=== PATIENT | female | born 1970 | race Caucasian/White ===

== ENCOUNTER 2019-04-30 14:56 | Emergency (ER) | payer OTHER ==
[2019-04-30] MEDS ORDERED: GLUCAGON 1 MG/VIAL ONE ×2 (15:29→16:07)
[2019-04-30] MEDS ORDERED: ONDANSETRON 4 MG/2 ML VIAL ONE (15:29)
--- NOTE | 2019-04-30 15:44 | RAD REPORT ---
EXAM DESCRIPTION: RAD - Chest Single View - 04/30/2019 3:36 pm CLINICAL HISTORY: CHEST PAIN Chest pain. COMPARISON: No comparisons FINDINGS: Portable technique limits examination quality. The lungs are grossly clear. The heart is normal in size. No displaced fractures. IMPRESSION: No acute intrathoracic process suspected.
[2019-04-30 15:49] LABS: Absolute Lymphocytes (CBC) 0.6 K/uL (0.7-4.9); Basophils % 0.3 % (0-1.3); Hematocrit 47.9 % (36.0-45.0); Lymphocytes % 5.1 % (15.3-44.8); MPV 9.2 fL (7.6-11.3); RBC Red Blood Cell Count 4.67 M/uL (3.86-4.86)
[2019-04-30 15:54] LABS: Protime INR 1.06
[2019-04-30] MEDS ORDERED: PANTOPRAZOLE 40 MG INJ ONE (15:59)
[2019-04-30] MEDS ORDERED: NA CHLORIDE 0.9% 500 ML ONE (16:07)
[2019-04-30 16:22] LABS: ALT/SGPT 16 U/L (12-78); AST/SGOT 15 U/L (15-37); Albumin 4.2 g/dL (3.4-5.0); Alkaline Phosphatase 89 U/L (45-117); BUN Blood Urea Nitrogen 24 mg/dL (7-18); Bicarbonate 23 mmol/L (21-32); Bilirubin Direct 0.2 mg/dL (0-0.2); Bilirubin Total 0.9 mg/dL (0.2-1.0); Glucose Level 115 mg/dL (74-106); Lipase 85 U/L (73-393); Magnesium 2.4 mg/dL (1.8-2.4); NT PRO-BNP 1165 pg/mL (<125); Potassium 3.9 mmol/L (3.5-5.1); Protein, Total 8.6 g/dL (6.4-8.2); Sodium Level 141 mmol/L (136-145); Troponin (Emerg Dept Use Only) < 0.02 ng/mL (0.0-0.045)
--- NOTE | 2019-04-30 16:57 | ER ---
Nurse's Notes [facility] Name: Tiara Contreras Age: 49 yrs Sex: Female : 1970 Arrival Date: 04/30/2019 Time: 14:59 Bed 7 Private MD: Diagnosis: Vomiting, unspecified;Swallowed Foreign Body Sensation Presentation: 04/29 15:10 Chief complaint: Patient states: Ate a piece of steak Monday that got stuck in throat. ss Pt reports that some of the steak came up, but she feels as if there is more that is stuck because she cannot keep anything down. She will feel pressure then vomit right after. Coronavirus screen: The patient has NOT traveled to a country currently being monitored by the [facility] within the last 14 days. Proceed with normal triage procedures. Ebola Screen: Patient denies exposure to infectious person. Patient denies travel to an Ebola-affected area in the 21 days before illness onset. Initial Sepsis Screen: Does the patient meet any 2 criteria? No. Patient's initial sepsis screen is negative. Does the patient have a suspected source of infection? No. Patient's initial sepsis screen is negative. Risk Assessment: Do you want to hurt yourself or someone else? Patient reports no desire to harm self or others. 15:10 Method Of Arrival: Ambulatory ss 15:10 Acuity: GM 3 ss 16:11 Onset of symptoms was April 28, 2019. sv Historical: - Allergies: 15:14 No Known Allergies; ss - Home Meds: 19:06 None [Active]; sv - PMHx: 19:06 None; sv - PSHx: 19:06 Cholecystectomy; ; sv - Immunization history:: Adult Immunizations up to date. - Social history:: Smoking status: Patient reports the use of cigarette tobacco products, smokes one pack cigarettes per day. Screenin:20 Abuse screen: Denies threats or abuse. Denies injuries from another. Nutritional sv screening: No deficits noted. Tuberculosis screening: No symptoms or risk factors identified. Fall Risk None identified. Assessment: 15:15 General: Appears in no apparent distress. uncomfortable, slender, well developed, sv Behavior is calm, cooperative, appropriate for age. Pain: Complains of pain in chest Pain currently is 7 out of 10 on a pain scale. Quality of pain is described as pressure, Is continuous. Neuro: Level of Consciousness is awake, alert, obeys commands, Oriented to person, place, time, situation, Moves all extremities. Full function Gait is steady, Speech muffled. Respiratory: Airway is patent Respiratory effort is unlabored, shallow, Respiratory pattern is regular, symmetrical. EENT: Reports difficulty swallowing that she recently got new dentures placed and she had steak and has felt like it has been stuck in her throat since. She has tried coke and other remedies at home with no luck.. Derm: Skin is intact, Skin is pink, warm \T\ dry. Musculoskeletal: Range of motion: intact in all extremities. 16:02 Reassessment: Pt attempted taking a sip of a coke, no vomiting. Pt took a second sip of sv coke and vomited it back up. Informed Jose M ANNE, medications ordered. 16:30 Reassessment: Pt reports that she feels like the piece of steak might have gone down a sv little bit but still feels it in there. 16:57 Reassessment: Patient appears in no apparent distress at this time. No changes from sv previously documented assessment. Patient and/or family updated on plan of care and expected duration. Pain level reassessed. Patient is alert, oriented x 3, equal unlabored respirations, skin warm/dry/pink. 17:05 Reassessment: Pt attempted to drink more coke but vomited it up. sv 18:15 Reassessment: Patient appears in no apparent distress at this time. No changes from sv previously documented assessment. Patient and/or family updated on plan of care and expected duration. Pain level reassessed. Patient is alert, oriented x 3, equal unlabored respirations, skin warm/dry/pink. 20:18 Reassessment: Patient and/or family updated on plan of care and expected duration. Pain ea level reassessed. Patient is alert, oriented x 3, equal unlabored respirations, skin warm/dry/pink. [facility] at facility for transfer. Pt left ED per EMS, tolerating well. Vital Signs: 15:10 BP 108 / 76; Pulse 115; Resp 16; Temp 98.1(TE); Pulse Ox 96% on R/A; Weight 56.7 kg; ss Height 5 ft. 10 in. (177.80 cm); Pain 7/10; 15:30 BP 102 / 73; Pulse 100; Resp 16; Pulse Ox 100% ; sv 16:00 BP 108 / 81; Pulse 102; Resp 15; Pulse Ox 100% on R/A; sv 16:54 BP 107 / 79; Pulse 96; Resp 18; Pulse Ox 98% on R/A; sv 17:30 BP 115 / 81; Pulse 97; Resp 16; Pulse Ox 99% ; sv 18:30 BP 122 / 79; Pulse 89; Resp 16; Pulse Ox 99% ; sv 19:45 BP 123 / 81; Pulse 97; Resp 18; Pulse Ox 99% ; ea 15:10 Body Mass Index 17.94 (56.70 kg, 177.80 cm) ss ED Course: 14:59 Patient arrived in ED. ag5 15:05 Dottie Aiken, RN is Primary Nurse. sv 15:13 Jose M Matthews PA is PHCP. cp 15:13 Jose M Doshi MD is Attending Physician. cp 15:14 Triage completed. ss 15:14 Arm band placed on right wrist. ss 15:20 Patient has correct armband on for positive identification. Bed in low position. Call sv light in reach. Adult w/ patient. Pulse ox on. NIBP on. Door closed. Head of bed elevated. 15:20 Inserted saline lock: 20 gauge in right forearm, using aseptic technique. Blood sv collected. Flushed right forearm with 5 ml normal saline. 15:44 XRAY Chest (1 view) In Process Unspecified. EDMS 15:50 EKG done, by technical maintenance technician. reviewed by Jose M ANNE. at1 18:56 Report given to Howard DORANTES and Elly DORANTES. sv 19:06 No provider procedures requiring assistance completed. Patient transferred, IV remains sv in place. intact. 19:20 Primary Nurse role handed off by Dottie Aiken, JAYNA sv 19:55 Zay Salcedo, JAYNA is Primary Nurse. lw1 Administered Medications: 15:25 Drug: Zofran (Ondansetron) 4 mg Route: IVP; Site: right forearm; sv 16:13 Follow up: Response: No adverse reaction sv 15:32 Drug: Glucagon 1 mg Route: IVP; Site: right forearm; sv 16:13 Follow up: Response: No adverse reaction sv 16:05 Drug: ProTONIX 40 mg Route: IVP; Site: right forearm; sv 16:50 Follow up: Response: No adverse reaction sv 16:09 Drug: NS 0.9% 1000 ml Route: IV; Rate: 1000 ml/hr; Site: right forearm; sv 17:15 Follow up: Response: No adverse reaction; IV Status: Completed infusion; IV Intake: sv 1000ml 16:09 Drug: Glucagon 1 mg Route: IVP; Site: right forearm; sv 16:50 Follow up: Response: No adverse reaction sv 17:34 Drug: NS 0.9% 1000 ml Route: IV; Rate: 100 ml/hr; Site: right forearm; sv Intake: 17:15 IV: 1000ml; Total: 1000ml. sv Outcome: 16:56 ER care complete, transfer ordered by MD. cp 19:06 Transferred by ground EMS to [facility], Transfer form completed. sv X-rays sent w/ patient. Note: Report given to Donna DORANTES 19:06 Condition: stable 19:06 Instructed on the need for transfer. 20:19 Patient left the ED. ea Signatures: Dispatcher [employer] Dottie Ferguson RN Harmony Taylor RN Ivet Mcdaniel, chiller technician EKG Tat1 Jose M Matthews PA PA cp Antunez, Elena RN Ludy Montilla ea ag5 Zay Salcedo RN RN lw1 Corrections: (The following items were deleted from the chart) 16:10 15:25 Zofran (Ondansetron) 4 mg IVP in right antecubital sv sv 16:10 15:32 Glucagon 1 mg IVP in right antecubital sv sv
--- NOTE | 2019-04-30 16:57 | EDPHYS ---
Physician Documentation [facility] Name: Tiara Contreras Age: 49 yrs Sex: Female : 1970 Arrival Date: 04/30/2019 Time: 14:59 Bed 7 Private MD: ED Physician Jose M Doshi HPI: 04/29 15:20 This 49 yrs old Female presents to ER via Ambulatory with complaints of cp Foreign Body In Throat. 15:20 The patient presents with dysphagia, of both solids and liquids, a foreign body cp sensation in the throat. 15:20 Onset: The symptoms/episode began/occurred 2 day(s) ago. Severity of symptoms: in the cp emergency department the symptoms are unchanged, despite home interventions. Associated signs and symptoms: Pertinent positives: chest pain, nausea, vomiting, Pertinent negatives cough, diarrhea, fever. Patient reports she was eating steak Monday and feels like a piece of meat is stuck in throat. Historical: - Allergies: 15:14 No Known Allergies; ss - Home Meds: 19:06 None [Active]; sv - PMHx: 19:06 None; sv - PSHx: 19:06 Cholecystectomy; ; sv - Immunization history:: Adult Immunizations up to date. - Social history:: Smoking status: Patient reports the use of cigarette tobacco products, smokes one pack cigarettes per day. ROS: 15:25 Constitutional: Positive for poor PO intake, Negative for body aches, chills, fever. cp 15:25 Eyes: Negative for injury, pain, redness, and discharge. cp 15:25 Cardiovascular: Positive for chest pain, of the retrosternal, Negative for edema, cp palpitations. 15:25 ENT: Positive for difficulty swallowing, foreign body sensation, Negative for drainage cp from ear(s), ear pain, difficulty handling secretions. 15:25 Respiratory: Negative for cough, shortness of breath, wheezing. 15:25 Abdomen/GI: Positive for nausea and vomiting, Negative for abdominal pain, diarrhea, constipation, hematemesis. 15:25 Back: Negative for radiated pain. 15:25 Skin: Negative for cellulitis, rash. 15:25 Neuro: Negative for altered mental status, headache, weakness. 15:25 All other systems are negative. Exam: 15:30 Constitutional: The patient appears in no acute distress, alert, awake, cp non-diaphoretic, non-toxic, well developed, well nourished. 15:30 Head/Face: Normocephalic, atraumatic. cp 15:30 Eyes: Pupils equal round and reactive to light, extra-ocular motions intact. Lids and cp lashes normal. Conjunctiva and sclera are non-icteric and not injected. Cornea within normal limits. Periorbital areas with no swelling, redness, or edema. ENT: Nares patent. No nasal discharge, no septal abnormalities noted. Tympanic membranes are normal and external auditory canals are clear. Oropharynx with no redness, swelling, or masses, exudates, or evidence of obstruction, uvula midline. Mucous membranes moist. Chest/axilla: Normal chest wall appearance and motion. Nontender with no deformity. No lesions are appreciated. 15:30 Cardiovascular: Rate: tachycardic, Rhythm: regular, Edema: is not appreciated, JVD: is not appreciated. 15:30 Respiratory: the patient does not display signs of respiratory distress, Respirations: normal, no use of accessory muscles, no retractions, labored breathing, is not present, Breath sounds: are clear throughout, no decreased breath sounds, no stridor, no wheezing. 15:30 Abdomen/GI: Inspection: abdomen appears normal, Bowel sounds: active, all quadrants, Palpation: abdomen is soft and non-tender, in all quadrants. 15:30 Back: pain, is absent, ROM is normal. 15:30 Skin: no rash present. 15:30 Neuro: Orientation: to person, place \T\ time. Mentation: is normal, Motor: moves all fours, strength is normal. 15:45 ECG was reviewed by the Attending Physician. cp Vital Signs: 15:10 BP 108 / 76; Pulse 115; Resp 16; Temp 98.1(TE); Pulse Ox 96% on R/A; Weight 56.7 kg; ss Height 5 ft. 10 in. (177.80 cm); Pain 7/10; 15:30 BP 102 / 73; Pulse 100; Resp 16; Pulse Ox 100% ; sv 16:00 BP 108 / 81; Pulse 102; Resp 15; Pulse Ox 100% on R/A; sv 16:54 BP 107 / 79; Pulse 96; Resp 18; Pulse Ox 98% on R/A; sv 17:30 BP 115 / 81; Pulse 97; Resp 16; Pulse Ox 99% ; sv 18:30 BP 122 / 79; Pulse 89; Resp 16; Pulse Ox 99% ; sv 19:45 BP 123 / 81; Pulse 97; Resp 18; Pulse Ox 99% ; ea 15:10 Body Mass Index 17.94 (56.70 kg, 177.80 cm) ss MDM: 15:14 Patient medically screened. daly 16:00 Differential diagnosis: epiglottitis, pharyngitis, retropharyngeal abcess tonsillitis, cp uvulitis, esophageal foreign body, trachea foreign body. 17:00 ED course: VSS. Patient continues to be intolerant of po fluids and vomiting observed cp with po challenge, will transfer patient due to need for GI services. 17:35 Data reviewed: vital signs, nurses notes, lab test result(s), EKG, radiologic studies, cp plain films, I have discussed the patient's presentation/case with the attending Emergency Department Physician;. 17:40 ED course: consult with DR Vicenta Anne, GI physician \[facility], will consult and cp requests transfer to services of hospitalist. 18:05 Physician consultation: was contacted at 17:57, regarding regarding transfer, patient's cp condition, DR Satnam Smith, hospitalist \[facility], will accept patient as transfer. 04/29 15:20 Order name: Basic Metabolic Panel; Complete Time: 16:28 04/29 16:28 Interpretation: Normal except: GLUC 115; BUN 24; GFR 53. 04/29 15:20 Order name: CBC with Diff; Complete Time: 17:11 04/29 15:59 Interpretation: Normal except: WBC 12.3; HGB 16.0; HCT 47.9; MCV 102.5; JOHANA% 92.2; LYM% cp 5.1; MN% 2.3; NEUT A 11.4; LYMA 0.6. 04/29 15:20 Order name: LFT's; Complete Time: 16:28 cp 04/29 16:28 Interpretation: Normal except: TP 8.6; GLOB 4.4; A/G 1.0. 04/29 15:20 Order name: Magnesium; Complete Time: 16:28 cp 04/29 15:20 Order name: NT PRO-BNP; Complete Time: 16:28 cp 04/29 17:12 Interpretation: Abnormal: NT PRO-BNP 1165. cp 04/29 15:20 Order name: PT-INR; Complete Time: 16:10 cp 04/29 16:10 Interpretation: Reviewed. cp 04/29 15:20 Order name: Troponin (emerg Dept Use Only); Complete Time: 16:28 cp 04/29 16:29 Interpretation: Within normal limits: TROPED < 0.02. cp 04/29 15:20 Order name: XRAY Chest (1 view); Complete Time: 16:33 cp 04/29 16:33 Interpretation: Report review. cp 04/29 15:20 Order name: Lipase; Complete Time: 16:28 cp 04/29 16:58 Order name: CBC Smear Scan; Complete Time: 17:11 EDMS 04/29 15:15 Order name: PO challenge; Complete Time: 16:13 cp 04/29 15:20 Order name: EKG; Complete Time: 15:22 cp 04/29 15:20 Order name: Cardiac monitoring; Complete Time: 15:51 cp 04/29 15:20 Order name: EKG - Nurse/Tech; Complete Time: 15:52 cp 04/29 15:20 Order name: IV Saline Lock; Complete Time: 15:52 cp 04/29 15:20 Order name: Labs collected and sent; Complete Time: 15:52 cp 04/29 15:20 Order name: O2 Per Protocol; Complete Time: 15:52 cp 04/29 15:20 Order name: O2 Sat Monitoring; Complete Time: 15:52 cp 04/29 16:34 Order name: PO challenge; Complete Time: 16:50 cp 04/29 18:04 Order name: NPO; Complete Time: 18:25 cp EC:45 Rate is 107 beats/min. Rhythm is regular. TN interval is normal. QRS interval is cp normal. QT interval is normal. Interpreted by me. Reviewed by me. Administered Medications: 15:25 Drug: Zofran (Ondansetron) 4 mg Route: IVP; Site: right forearm; sv 16:13 Follow up: Response: No adverse reaction sv 15:32 Drug: Glucagon 1 mg Route: IVP; Site: right forearm; sv 16:13 Follow up: Response: No adverse reaction sv 16:05 Drug: ProTONIX 40 mg Route: IVP; Site: right forearm; sv 16:50 Follow up: Response: No adverse reaction sv 16:09 Drug: NS 0.9% 1000 ml Route: IV; Rate: 1000 ml/hr; Site: right forearm; sv 17:15 Follow up: Response: No adverse reaction; IV Status: Completed infusion; IV Intake: sv 1000ml 16:09 Drug: Glucagon 1 mg Route: IVP; Site: right forearm; sv 16:50 Follow up: Response: No adverse reaction sv 17:34 Drug: NS 0.9% 1000 ml Route: IV; Rate: 100 ml/hr; Site: right forearm; sv Disposition: 04/30 12:42 Co-signature as Attending Physician, Jose M Doshi MD I agree with the assessment and daly plan of care. Disposition: 04/30/19 16:56 Transfer ordered to [facility]. Diagnosis are Vomiting, unspecified, Swallowed Foreign Body Sensation. - Reason for transfer: Higher level of care. - Accepting physician is Doctor. - Condition is Stable. - Problem is new. - Symptoms are unchanged. Signatures: Dispatcher [employer] Dottie Ferguson, RN RN Jose M Heard MD MD cha Smirch, Shelby RN RN Jose M Rodriguez PA PA cp Antunez, Elena RN RN ea Corrections: (The following items were deleted from the chart) 04/29 20:19 16:56 04/30/2019 16:56 Transfer ordered to [facility]. ea Diagnosis is Vomiting, unspecified; Swallowed Foreign Body Sensation. Reason for transfer: Higher level of care. Accepting physician is Doctor. Condition is Stable. Problem is new. Symptoms are unchanged. cp
[2019-04-30 16:58] LABS: Blood Morphology Comment NOT SEEN (NOT SEEN); Platelet Estimate ADEQ; Urine White Blood Cell Casts OK
[2019-04-30] MEDS ORDERED: NA CHLORIDE 0.9% 1,000 ML ONE (17:35)
[2019-04-30 20:26] VITALS: TEMP 98.1
[2019-04-30 20:32] VITALS: O2SAT 99
[2019-04-30 20:35] VITALS: BP 123/81
--- NOTE | 2019-05-01 09:28 | EKG ---
Test Date: 2019-04-30 Test Time: 15:41:49 Crime Analyst: MELISA MEASUREMENT RESULTS: Intervals: Rate: 107 KS: 132 QRSD: 76 QT: 412 QTc: 550 [place]: P: 87 KS: 132 QRS: 90 T: 88 INTERPRETIVE STATEMENTS: Sinus tachycardia Right atrial enlargement Rightward axis Pulmonary disease pattern RSR' or QR pattern in V1 suggests right ventricular conduction delay Minimal voltage criteria for LVH, may be normal variant Nonspecific ST and T wave abnormality Abnormal ECG No previous ECG available for comparison Electronically Signed On 05-01-19 09:27:13 CDT by Jay Bai
== END 2019-04-30 20:19 | disposition short-term general hospital (02) ==
LOC: ER 14:56
DX: R09.89 Other specified symptoms and signs involving the circulatory and respiratory systems (principal); R11.10 Vomiting, unspecified; F17.210 Nicotine dependence, cigarettes, uncomplicated
CPT/HCPCS: 96361; 93005; 85025; 80048; 36415; 83735; 85610; 80076; 84484; 83690; 83880; 71045; 96375; 96374; 99285; J1610 ×2; C9113; J7040; J7030; J2405